=== PATIENT | male | born 1940 | race Caucasian/White ===

== ENCOUNTER 2020-04-24 09:06 | Outpatient (CLI) | payer MEDICARE, SELFPAY ==
--- NOTE | 2020-04-24 09:13 | ECG_ITS ---
Measurements Intervals [place] Rate: 52 P: 19 [place]: 177 QRS: 5 QRSD: 117 T: 33 QT: 427 QTc: 398 Interpretive Statements SINUS BRADYCARDIA INTRAVENTRICULAR CONDUCTION DELAY MINIMAL Q WAVES- HIGH LATERAL LEADS BASELINE ARTIFACT- I, II, III, AVR, AVL, AVF BORDERLINE ECG Electronically Signed On 04-24-2020 9:40:12 PEDIATRIC ASSISTANT by Rojas Narvaez D.O.
== END 2020-04-24 09:07 | disposition home or self-care (01) ==
LOC: ANHSURGERY 09:12
PROVIDERS: PCP Family Medicine; Visit Provider Otolaryngology
DX: I10 Essential (primary) hypertension (principal); Z01.818 Encounter for other preprocedural examination; I45.9 Conduction disorder, unspecified
CPT/HCPCS: 93005

== ENCOUNTER → 2020-04-27 02:37 | Outpatient (CLI) | payer MEDICARE, SELFPAY ==
[2020-04-27 18:21] LABS: SARS-CoV-2 RNA PCR Negative
== END ==
PROVIDERS: PCP Family Medicine; Visit Provider Otolaryngology
DX: Z01.812 Encounter for preprocedural laboratory examination (principal); Z20.822 Contact with and (suspected) exposure to COVID-19
CPT/HCPCS: C9803; U0003; U0005

== ENCOUNTER 2020-04-30 01:40 | Day surgery (SDC) | payer MEDICARE, SELFPAY ==
[2020-04-20 14:33] VITALS: BMI 37.5
[2020-04-30] VITALS (8 sets, daily range): BP systolic 116–143; BP diastolic 55–87; PULSE 50–61; RESP 14–20; TEMP 36.2–37.1; O2SAT 98–99
--- NOTE | 2020-04-30 06:14 | PM.HPGS ---
History of Present Illness History of Present Illness Consent: Risks, benefits, and alternatives have been discussed and questions answered. Patient agrees to proceed with procedure. Chief complaint: Nasal Septal Deviation, Chronic Sinusitis Narrative: Zach Koo is a 80 year old male with nasal obstruction and recurring episodes of sinusitis treated with various courses of antibiotics Review of Systems Review of Systems: All systems reviewed & are unremarkable except as noted in HPI and below PMFSH Past Medical History Medical History Finger deformity Fingertip removed 2017 Pacemaker 2016 Surgical History Surgical History H/O knee surgery Left: 2015 Right: 2014 History of hip surgery Left: 2012 Right: 2013 S/P coronary artery stent placement 2015, 2018 Family History Family History Mother Ovarian cancer Father Acute myocardial infarction Social History Social History Smoking status: Never smoker Alcohol intake: current Living arrangements: with family Spiritual care concerns: No Meds Home Medications and Allergies Home Medications Medication Instructions Recorded Confirmed Type allopurinol 100 mg tablet 200 mg PO DAILY 05/06/19 04/20/20 History aspirin 81 mg tablet,delayed 81 mg PO HS 05/06/19 04/20/20 History release atorvastatin 80 mg tablet 80 mg PO DAILY 05/06/19 04/20/20 History finasteride 5 mg tablet 5 mg PO DAILY 05/06/19 04/20/20 History glucosamine-chondroitin 250 mg-200 2 tablet PO DAILY tablet 05/06/19 04/20/20 History mg tablet lisinopril 10 mg tablet 10 mg PO DAILY 05/06/19 04/20/20 History metoprolol tartrate 50 mg tablet 50 mg PO DAILY 05/06/19 04/20/20 History pantoprazole 40 mg tablet,delayed 40 mg PO QAM 05/06/19 04/20/20 History release tamsulosin 0.4 mg capsule 0.4 mg PO DAILY 05/06/19 04/20/20 History multivitamin,po-ntiy-lfuwahtp 1 tablet PO DAILY 04/20/20 04/20/20 History [Complete Multivitamin] vitamins A,C,F-gafd-bjfbtk 1 cap PO BID 04/20/20 04/20/20 History [PreserVision AREDS] Allergies Allergy/AdvReac Type Severity Reaction Status Date / Time No Known Allergies Allergy Verified 04/20/20 14:31 Exam Narrative: Exam Narrative: chest clear heart without murmurs septum deviated with obstruction turbinates swollen Assessment and Plan Additional Plan plan is a septoplasty anterior posterior ethmoidectomy maxillary antrostomy and frontal sinus trephination
--- NOTE | 2020-04-30 06:16 | WPDHPUPDATE1 ---
History and Physical Update Update Date/Time: 04/30/20 06:16 History and Physical has been reviewed, including an updated exam of the patient. There are NO changes in the patient's condition. Risks, benefits, and alternatives have been discussed and questions answered. Patient agrees to proceed with procedure.
[2020-04-30] MEDS: LACTATED RINGERS 1,000 ML 30 ML IV CONT (09:30)
[2020-04-30] MEDS: ACETAMINOPHEN 500 MG TABLET 1000 MG PO (09:31)
--- NOTE | 2020-04-30 09:44 | WPDANESEPPF ---
Anes - Initial Pre Proc Eval Procedure: Operation Date: 04/30/20 10:45 Proposed Procedures p Septoplasty - Fredrick Johnson MD s Anterior, Posterior Ethmoidectomy, Frontal Sinusotomy, Functional Endoscopic Sinus Surgery with Fusion - Fredrick Johnson MD Date/Time: 04/30/20 09:44 Surgeon: Fredrick Johnson MD Pre Op Diagnosis: Nasal Septal Deviation, Chronic Sinusitis Patient Data Age: 80 Gender: M Height: 5 ft 10 in Weight: 120.7 kg Last Vital Signs Temp 37.1 C 04/30/20 09:32 Pulse 51 L 04/30/20 09:32 Resp 20 04/30/20 09:32 BP 137/63 04/30/20 09:32 Pulse Ox 99 04/30/20 09:32 Allergies Allergy/AdvReac Type Severity Reaction Status Date / Time No Known Allergies Allergy Verified 04/20/20 14:31 Home Medications Medication Instructions Recorded Confirmed Type allopurinol 100 mg tablet 200 mg PO DAILY 05/06/19 04/30/20 History aspirin 81 mg tablet,delayed 81 mg PO HS 05/06/19 04/30/20 History release atorvastatin 80 mg tablet 80 mg PO DAILY 05/06/19 04/30/20 History finasteride 5 mg tablet 5 mg PO DAILY 05/06/19 04/30/20 History glucosamine-chondroitin 250 mg-200 2 tablet PO DAILY tablet 05/06/19 04/30/20 History mg tablet lisinopril 10 mg tablet 10 mg PO DAILY 05/06/19 04/30/20 History metoprolol tartrate 50 mg tablet 50 mg PO DAILY 05/06/19 04/30/20 History pantoprazole 40 mg tablet,delayed 40 mg PO QAM 05/06/19 04/30/20 History release tamsulosin 0.4 mg capsule 0.4 mg PO DAILY 05/06/19 04/30/20 History multivitamin,jf-suff-rcjaknzp 1 tablet PO DAILY 04/20/20 04/30/20 History [Complete Multivitamin] vitamins A,C,Y-vfkm-hqqqqw 1 cap PO BID 04/20/20 04/30/20 History [PreserVision AREDS] Patient hx anesthesia problems: none Family hx anesthesia problems: none PMFSH Past Medical History Medical History CAD (coronary artery disease) Finger deformity Fingertip removed 2017 Hyperlipidemia Hypertension LISBET (obstructive sleep apnea) Pacemaker 2016 Surgical History Surgical History H/O knee surgery Left: 2015 Right: 2014 History of hip surgery Left: 2011 Right: 2013 S/P coronary artery stent placement 2016, 2018 Family History Family History Mother Ovarian cancer Father Acute myocardial infarction Social History Social History Smoking status: Never smoker Alcohol intake: current Living arrangements: with family Spiritual care concerns: No Anes - Eval Final PreProcedure Day of Procedure 04/30/20 09:44 Patient weight: obese Heart: regular rate and rhythm Lungs: clear to auscultation Airway: Mallampati scale class II Neurological: alert and oriented Last oral intake: >/= 8 hours ASA classification: III Emergent: no Anesthetic plan: proceed Anesthesia type and monitoring: general ETT and standard monitoring Informed Consent: The patient's anesthetic plan and its attendant risks and benefits were discussed with the patient/family/POA. Questions were solicited and answers provided to the satisfaction of the patient/family/POA.
[2020-04-30] MEDS: COCAINE HCL (*CRX) 4% TOP SOLN 4 ML VIAL 1 APPLIC TOPICAL (10:10)
[2020-04-30] MEDS: LIDO 1%/EPINEPHRINE 1:100,000 50 ML VIAL 10 ML INFILTRATE (10:10)
--- NOTE | 2020-04-30 10:53 | PM.PROC ---
Procedure Note - Detailed Date of procedure: 04/30/20 Pre-op diagnosis: Nasal Septal Deviation, Chronic Sinusitis Post-op diagnosis: same Procedure performed: Septoplasty anterior posterior ethmoidectomy maxillary antrostomy Description of procedure: Patient was prepped and draped in usual fashion after general anesthesia. The nose was injected with xylocaine with Adrenalin and packed with Neosporin Bishnu-Synephrine on cottonoids. A [right] monik transfixation was made anterior and posterior tunnel was elevated. The bony cartilage junction . The bony deviation was removed in its entirety. Swung the cardilege and bone to the midline nose open on both sides. The nose was then packed with Surgicel patient awakened returned to recovery good condition. The middle turbinates were injected with xylocaine with adrenaline with the micro debrider the uncinectomy was done on both sides the anterior ethmoid cells were opened as was the basal lamella no significant thickened lining was noted maxillary antrum opened on both sides nasal support placed in the ethmoid cavity the septal incision was closed with of 4 0 chromic and Gonsales splints placed in and sutured in with 2 0 silk. Anesthesia: GLMA and GETA Surgeon: Fredirck Johnson MD Estimated blood loss (mL): 10 Packing: Yes Pathology: none sent Complications: No immediate complications Condition: stable Disposition: PACU Findings: marked septal deviation
[2020-04-30] MEDS: fentaNYL CITRATE INJ (*CRX) 100 MCG/2 ML VIAL 25 MCG IV PUSH ×2 (11:35→11:38)
== END 2020-04-30 12:43 | disposition home or self-care (01) ==
PROVIDERS: PCP Family Medicine; Visit Provider Otolaryngology
PROC: (CPT 30520; principal; 2020-04-30 10:45)
PROC: (CPT 31255; 2020-04-30 10:45)
DX: J32.9 Chronic sinusitis, unspecified (principal); J34.2 Deviated nasal septum; I10 Essential (primary) hypertension; E78.5 Hyperlipidemia, unspecified; I25.10 Atherosclerotic heart disease of native coronary artery without angina pectoris; G47.33 Obstructive sleep apnea (adult) (pediatric); Z95.0 Presence of cardiac pacemaker; Z95.5 Presence of coronary angioplasty implant and graft; E66.9 Obesity, unspecified; Z68.38 Body mass index [BMI] 38.0-38.9, adult
CPT/HCPCS: 31255; 31256; 30520; 61782; A9270; J1100; J2405; J2704; J3010; J7120